=== PATIENT | female | born 1945 | race Caucasian/White ===

== ENCOUNTER 2021-12-15 18:26 | Emergency (ER) | payer OTHER ==
[~2021-12-15 18:26] MED LIST: ASPIRIN EC81 MG PO; CALCIUM + VITA1 EACH PO; CERTAGEN1 EACH PO; DULERA 200 MCG8.8 GM INH; DUONEB 2.5-0.5M1 AMP NEB; FLEXERIL5 MG PO; FLONASE ALLER15.8 ML; GLUCOSAMINE HC500 MG PO; LEVAQUIN750 MG PO; LIPITOR20 MG PO; LOVAZA1 GM PO; MOVANTIK25 MG PO; MSM1000 MG PO; NEBULIZER UNIT NEB; NITROGLYCERIN2.5 M1 PO; PERCOCET 5-3251 EACH PO; PREDNISONE 20MG20 MG PO; SINGULAIR10 MG PO; SPIRIVA RESPIMAT4 G1 INH; VENTOLIN HFA IN18 GM INH; XARELTO15 MG PO; XARELTO20 MG PO
[2021-12-15] MEDS ORDERED: CEPHALEXIN500 MG PO (18:59)
== END 2021-12-15 19:00 | disposition home or self-care (01) ==
LOC: FER 18:26
DX: S61.012A Laceration without foreign body of left thumb without damage to nail, initial encounter (principal); I10 Essential (primary) hypertension; J44.9 Chronic obstructive pulmonary disease, unspecified; Z88.0 Allergy status to penicillin; Z88.1 Allergy status to other antibiotic agents; Z79.01 Long term (current) use of anticoagulants; W26.0XXA Contact with knife, initial encounter; Y92.009 Unspecified place in unspecified non-institutional (private) residence as the place of occurrence of the external cause